=== PATIENT | female | born 1945 | race Two or more races ===

== ENCOUNTER 2018-02-24 21:22 | Inpatient (IN) | payer MEDICARE, OTHER ==
[~2018-02-24] VITALS: Ht 152.4 cm; Wt 50.8 kg
--- NOTE | 2018-02-24 21:55 | NUR ---
PT BIB [facility]. PT IS ON 5150 HOLD DANGER TO SELF/GD. PER REPORT, [place] [employer] FOUND PT WANDERING AND PT WAS CONFUSED, DIDN'T KNOW WHERE SHE WAS. PT IS CALM + COOPERATIVE AT THIS TIME.
--- NOTE | 2018-02-24 21:59 | NUR ---
PATIENT UNABLE TO RECALL HOME MEDICATION AT THIS TIME
[2018-02-24 22:29] LABS: BASOPHILS # (AUTO) 0.1 K/uL (0.0-8.0); EOSINOPHILS # (AUTO) 0.1 K/uL (0.0-0.7); EOSINOPHILS % (AUTO) 2.1 % (0.0-7.0); HEMATOCRIT 36.5 % (31.2-41.9); HEMOGLOBIN 12.6 g/dL (10.9-14.3); LYMPHOCYTES # (AUTO) 1.5 K/uL (20.0-40.0); LYMPHOCYTES % (AUTO) 25.6 % (20.5-51.5); MEAN CORPUSCULAR HEMOGLOBIN 32.5 uug (24.7-32.8); MEAN CORPUSCULAR HGB CONC 35 g/dL (32.3-35.6); MEAN CORPUSCULAR VOLUME 94.4 fL (75.5-95.3); MONOCYTES # (AUTO) 0.5 K/uL (2.0-10.0); MONOCYTES % (AUTO) 8.8 % (0.0-11.0); NEUTROPHILS # (AUTO) 3.6 K/uL (1.8-8.9); NEUTROPHILS % (AUTO) 62.5 % (38.5-71.5); PLATELET COUNT (AUTO) 226 K/uL (179-408); RED BLOOD CELL COUNT(AUTO) 3.87 MIL/uL (3.63-4.92); WHITE BLOOD COUNT (AUTO) 5.8 K/uL (3.8-11.8)
[2018-02-24 22:30] LABS: *BILIRUBIN,URIN NEGATIVE (NEGATIVE); *BLOOD, URINE Trace-intact (NEGATIVE); *COLOR,URINE YELLOW (YELLOW); *KETONES,URINE NEGATIVE (NEGATIVE); *PROTEIN,URINE NEGATIVE (NEGATIVE); *UROBILINOGEN,URINE 0.2 E.U./dl (NORMAL); LEUKOCYTE ESTERASE ,URINE 2+ (NEGATIVE); NITRITE, URINE NEGATIVE (NEGATIVE); UGLUCOSE NEGATIVE (NEGATIVE)
[2018-02-24 22:42] LABS: *CLARITY,URINE SLIGHTLY CLOUDY (CLEAR)
[2018-02-24 22:45] LABS: CARBON DIOXIDE 29 mmol/L (21-32); CHLORIDE 105 mmol/L (98-107); CREATININE 0.8 mg/dL (0.6-1.3); GLUCOSE 122 mg/dL (74-106); POTASSIUM 3.5 mmol/L (3.5-5.1); UREA NITROGEN, BLOOD 18 mg/dL (7-18)
[2018-02-24 22:47] LABS: *AMPHETAMINE, URINE NEGATIVE (NEGATIVE); *BARBITURATE, URINE NEGATIVE (NEGATIVE); *CANNABINOID, URINE NEGATIVE (NEGATIVE); *COCCAINE, URINE NEGATIVE (NEGATIVE); *OPIATE, URINE NEGATIVE (NEGATIVE); *PHENCYCLIDINE SCREEN,URINE NEGATIVE (NEGATIVE)
[2018-02-24 22:47] LABS: ETHANOL < 3 MG/DL (0-0)
[2018-02-24 22:51] LABS: ALANINE AMINOTRANSFERASE 31 U/L (14-59); ALKALINE PHOSPHATASE 80 U/L (50-136); ASPARTATE AMINOTRANSFERASE 25 U/L (15-37); BILIRUBIN,DIRECT 0.1 mg/dL (0.0-0.2); BILIRUBIN,TOTAL 0.5 mg/dL (0.2-1.0); CREATINE KINASE, TOTAL 177 U/L (26-192); TOTAL PROTEIN, SERUM 6.4 g/dL (6.4-8.2)
[2018-02-24 22:59] LABS: THYROID STIMULATING HORMONE 1.355 mIU/mL (0.358-3.740)
[2018-02-24 23:10] LABS: ACETAMINOPHEN < 2.0 ug/mL (10-30)
[2018-02-24 23:14] LABS: BACTERIA,URINE FEW /HPF (NONE SEEN); SQUAMOUS EPITHELIAL CELL,UR MANY /HPF (NONE SEEN); WBC,URINE 20-50 /HPF (0-3)
[2018-02-25] MEDS ORDERED: CEPHALEXIN MONOHYDRATE 500 MG CAPSULE PO ONE
[2018-02-25] MEDS ORDERED: CEPHALEXIN MONOHYDRATE 500 MG CAPSULE ONE (00:07)
--- NOTE | 2018-02-25 00:10 | NUR ---
PAGED [email or web address] FOR PANEL CALL. AWAITING CALL BACK FROM LAMINE ALEXANDRE NP
[2018-02-25] MEDS ORDERED: HYDROCODONE/APAP 5-325MG TABLET PO PRN (00:30)
[2018-02-25] MEDS ORDERED: Z GUARD REMEDY PASTE 57 GM TUBE TOP PRN (00:30)
[2018-02-25] MEDS ORDERED: MAGNESIUM HYDROXIDE 30 ML LIQUID UDC PO PRN (00:30)
[2018-02-25] MEDS ORDERED: ONDANSETRON 4 MG/2 ML VIAL IV PRN (00:30)
[2018-02-25] MEDS ORDERED: ACETAMINOPHEN 325 MG TABLET PO PRN (00:30)
--- NOTE | 2018-02-25 00:50 | NUR ---
Pt. admitted to [facility] , under care of Dr. Narayan/Erin MATHEW. Diagnosis: Psychosis/UTI Belongs List completed. MRSA swab done. Report given to Zechariah JULIEN.
--- NOTE | 2018-02-25 01:45 | NUR ---
RECEIVED REPORT FROM ANAYA SANTANA, IN ER. PT ARRIVED ON TELE FLOOR AT 0130 VIA W/C. PT IS ON 5150 FOR DTS/GD. 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 PT DENIES ANY PAIN, C/P, SOB, N/V AT THIS TIME. PT PLACED ON TELE MONITORING - NSR. SITTER AT BEDSIDE. PSYCH DR. NICE AND HOSPITALIST DR. ALEXANDRE. WILL CONTINUE TO MONITOR.
--- NOTE | 2018-02-25 02:16 | NUR ---
PER ER STAFF ANAYA SANTANA, PT'S COUSINS WERE CONTACTED, BUT FAMILY REFUSED TO BE INVOLVED AND DID NOT WANT TO RECEIVE CALLS FROM THE HOSPITAL RE PT. PT'S LIVING CONDITION IS UNKNOWN AND PT IS UNABLE TO PROVIDE INFORMATION. PT STATES SHE TAKES MEDICATION AT HOME OR HTN, BUT UNABLE TO RECALL THE NAME OF MEDS.
[2018-02-25 02:19] VITALS: BP 155/64
[2018-02-25 04:26] VITALS: BP 145/68
[2018-02-25 06:10] LABS: BASOPHILS % (AUTO) 0.7 % (0.0-2.0); EOSINOPHILS # (AUTO) 0.2 K/uL (0.0-0.7); EOSINOPHILS % (AUTO) 2.8 % (0.0-7.0); HEMOGLOBIN 12.4 g/dL (10.9-14.3); LYMPHOCYTES # (AUTO) 1.6 K/uL (20.0-40.0); LYMPHOCYTES % (AUTO) 30.1 % (20.5-51.5); MEAN CORPUSCULAR HEMOGLOBIN 32.8 uug (24.7-32.8); MEAN CORPUSCULAR HGB CONC 34 g/dL (32.3-35.6); MEAN CORPUSCULAR VOLUME 95.8 fL (75.5-95.3); MONOCYTES # (AUTO) 0.5 K/uL (2.0-10.0); NEUTROPHILS # (AUTO) 3.1 K/uL (1.8-8.9); NEUTROPHILS % (AUTO) 57.4 % (38.5-71.5); PLATELET COUNT (AUTO) 227 K/uL (179-408); RED BLOOD CELL COUNT(AUTO) 3.76 MIL/uL (3.63-4.92); WHITE BLOOD COUNT (AUTO) 5.4 K/uL (3.8-11.8)
[2018-02-25 06:32] LABS: CARBON DIOXIDE 30 mmol/L (21-32); CHLORIDE 105 mmol/L (98-107); CHOLESTEROL 143 mg/dL (<200); CREATININE 0.8 mg/dL (0.6-1.3); GLUCOSE 91 mg/dL (74-106); HDL CHOLESTEROL 55 mg/dL (40-60); MAGNESIUM 2.1 mg/dL (1.8-2.4); PHOSPHOROUS 3.7 mg/dL (2.5-4.9); POTASSIUM 3.9 mmol/L (3.5-5.1); TRIGLYCERIDES 81 MG/DL (30-150); UREA NITROGEN, BLOOD 15 mg/dL (7-18)
[2018-02-25 06:40] LABS: THYROID STIMULATING HORMONE 1.274 mIU/mL (0.358-3.740)
--- NOTE | 2018-02-25 07:00 | NUR ---
Received pt sleeping, 1:1 sitter for safety. No immediate s/s of SOB, pain, distress or discomfort. RA. Bed at lowest position for safety
[2018-02-25] MEDS: CEPHALEXIN MONOHYDRATE 500 MG CAPSULE PO SCH ×2 (08:53→16:26)
--- NOTE | 2018-02-25 09:00 | NUR ---
Informed by INSTRUMENT REPAIR TECHNICIAN that the pt states she is hearing voices. That the voices are telling her not to eat
[2018-02-25 10:53] VITALS: BP 168/76
--- NOTE | 2018-02-25 15:03 | NUR ---
Informed by MAXWELL that pt tried to walk out of the hospital while I was on my break, stated that the pt was laying down, got up and started to walk out the door. Went to assess the pt, pt is laying in bed mumbling to herself. I asked the pt is she was okay and if she needed to talk to me, pt just mumbled.
--- NOTE | 2018-02-25 15:30 | NUR ---
Informed FINANCIAL CONSULTANT Pradeep in regards to the pt BP medications. orders were placed for Clonidine and Norvasc. Called Dr. Del Castillo for consult and informed her about the pt.'s hallucinations.
[2018-02-25] MEDS: CLONIDINE HCL 0.1 MG TABLET PO PRN ×2 (16:03→23:43)
--- NOTE | 2018-02-25 16:14 | NUR ---
Extensively explained the BP and ATB scheduled medications, pt was very adamant in not taking her medications stating that staff was planning on to kill her with pills. Pt states she herd staff member planning her . It took 15 minutes before pt took her BP medication
[2018-02-25 16:22] VITALS: BP 181/71
--- NOTE | 2018-02-25 16:37 | NUR ---
Pt agreed to take her Keflex after re-explaining the risk and benefits with Dr. Del Castillo. Pt is still under the impression staff is out to do her harm
[2018-02-25] MEDS ORDERED: risperiDONE-M 0.5 MG TAB.RAPDIS PO PRN (17:30)
--- NOTE | 2018-02-25 19:07 | NUR ---
Pt is sleeping at this time. Sitter 1:1 for safety. No immediate s/s of distress, discomfort or pain. Bed at lowest position.
--- NOTE | 2018-02-25 19:30 | NUR ---
Received patient awake verbally responsive, no sob no chest pain noted, cont on 1;1 sitter for safety, patient has episodes of wanting to elope, complain of slight headaches, refused to take pain meds, at this time, bp stable at this time, cont to monitor.
[2018-02-25 19:52] VITALS: BP 152/64
[2018-02-26 00:07] VITALS: BP 188/68
[2018-02-26 02:06] VITALS: BP 145/62
[2018-02-26 04:29] VITALS: BP 135/67
--- NOTE | 2018-02-26 05:51 | NUR ---
PATIENT SLEPT FOR ONE HOUR, CONT 1;1 SITTER FOR SAFETY, WITH ATTEMPTS TO ELOPE, CONTINENT OF BOWEL AND BLADDER, RYTHM SINUS RYTHM AT THIS TIME. CONT TO MONITOR.
[2018-02-26] MEDS: BENZTROPINE MESYLATE 0.5 MG TABLET PO SCH ×2 (08:43→16:25)
[2018-02-26] MEDS: AMLODIPINE 5 MG TABLET PO SCH (08:44)
[2018-02-26] MEDS: CEPHALEXIN MONOHYDRATE 500 MG CAPSULE PO SCH ×2 (08:44→16:25)
--- NOTE | 2018-02-26 09:15 | NUR ---
Pt stated that "they" are telling her not to eat breakfast. It took about 10 minutes to talk to the pt and convince her that it was very important for her to eat breakfast and that she needs nutrition in order to get better. Pt was compliant with morning medications after also extensively explaining them to her.
--- NOTE | 2018-02-26 16:33 | NUR ---
DC tele Pt compliant with afternoon medications. Pt is resting in bed
[2018-02-26] MEDS ORDERED: risperiDONE-M 0.5 MG TAB.RAPDIS PO SCH (17:00)
--- NOTE | 2018-02-26 17:17 | NUR ---
Pt seen and evaluated by Dr. Del Castillo
--- NOTE | 2018-02-26 18:46 | NUR ---
Pt has been compliant with medications, noted to still have hallucinations, Dr Del Castillo aware. Pt is alert and oriented times 4 with confusion, able to ambulate, able to verbally communicate needs.
--- NOTE | 2018-02-26 19:30 | NUR ---
RECEIVED PATIENT AWAKE BUT STILL WITH CONFUSION, REFUSED GROOMING, PREFER TO WEAR STREET CLOTHES. PATIENT NOTED TALKING TO SELF CONT TO REORIENT, CONT 1;1 SITTER FOR RISK FOR ELOPEMENT, ENCOURAGE TO DRINK AND ATE MEALS.
[2018-02-26 19:37] VITALS: BP 125/57
[2018-02-26] MEDS: risperiDONE-M 0.5 MG TAB.RAPDIS PO SCH (20:41)
[2018-02-27 05:25] VITALS: BP 155/71
--- NOTE | 2018-02-27 05:28 | NUR ---
PATIENT SLEPT FOR 7 HRS AT THIS TIME, ASSISTED WITH TOILETING, REFUSED HOSPITAL G[facility], PREFER STREET CLOTHES, CONT ON 1;1 SITTER FOR SAFETY, RISK FOR ELOPEMENT, CONT TO MONITOR.
--- NOTE | 2018-02-27 07:18 | NUR ---
Received pt awake sitting up in her bed. Pt states that she knows she is here because of her mental state.
[2018-02-27 08:00] VITALS: BP 152/56
[2018-02-27] MEDS: AMLODIPINE 5 MG TABLET PO SCH (08:00)
[2018-02-27] MEDS: BENZTROPINE MESYLATE 0.5 MG TABLET PO SCH ×2 (08:00→16:29)
[2018-02-27] MEDS: CEPHALEXIN MONOHYDRATE 500 MG CAPSULE PO SCH ×2 (08:00→16:29)
--- NOTE | 2018-02-27 08:18 | NUR ---
Pt is refusing breakfast because "they" are telling her not to eat. Had to explain AM medications 15minutes before she decided to take them because "they " keep telling her not to take medication because they are too strong.
[2018-02-27 12:00] VITALS: BP 168/70
[2018-02-27] MEDS: CLONIDINE HCL 0.1 MG TABLET PO PRN (12:57)
[2018-02-27] MEDS: SERTRALINE HCL 50 MG TABLET PO SCH (12:58)
[2018-02-27] MEDS: risperiDONE-M 0.5 MG TAB.RAPDIS PO SCH ×2 (12:58→20:46)
--- NOTE | 2018-02-27 13:03 | NUR ---
Pt compliant with noon medications, noted that pt has not touched her food. Pt was encourage to eat but she still states she is not allowed to eat, that "they" tell her not to eat. When asked who are "they", pt says she doesn't know. Convinced pt. to at least try the crackers
[2018-02-27 14:30] LABS: BASOPHILS % (AUTO) 0.7 % (0.0-2.0); EOSINOPHILS # (AUTO) 0.1 K/uL (0.0-0.7); EOSINOPHILS % (AUTO) 1.7 % (0.0-7.0); HEMATOCRIT 38.7 % (31.2-41.9); HEMOGLOBIN 13.5 g/dL (10.9-14.3); LYMPHOCYTES # (AUTO) 0.9 K/uL (20.0-40.0); LYMPHOCYTES % (AUTO) 19.8 % (20.5-51.5); MEAN CORPUSCULAR HGB CONC 35 g/dL (32.3-35.6); MEAN CORPUSCULAR VOLUME 94.8 fL (75.5-95.3); MONOCYTES # (AUTO) 0.3 K/uL (2.0-10.0); MONOCYTES % (AUTO) 7.3 % (0.0-11.0); NEUTROPHILS # (AUTO) 3.3 K/uL (1.8-8.9); NEUTROPHILS % (AUTO) 70.5 % (38.5-71.5); PLATELET COUNT (AUTO) 255 K/uL (179-408); RED BLOOD CELL COUNT(AUTO) 4.08 MIL/uL (3.63-4.92); WHITE BLOOD COUNT (AUTO) 4.7 K/uL (3.8-11.8)
[2018-02-27 14:48] LABS: ALANINE AMINOTRANSFERASE 27 U/L (14-59); ALKALINE PHOSPHATASE 88 U/L (50-136); ASPARTATE AMINOTRANSFERASE 19 U/L (15-37); BILIRUBIN,TOTAL 0.5 mg/dL (0.2-1.0); CARBON DIOXIDE 28 mmol/L (21-32); CHLORIDE 105 mmol/L (98-107); CREATININE 0.9 mg/dL (0.6-1.3); GLUCOSE 115 mg/dL (74-106); MAGNESIUM 2.4 mg/dL (1.8-2.4); POTASSIUM 4.2 mmol/L (3.5-5.1); TOTAL PROTEIN, SERUM 7.2 g/dL (6.4-8.2); UREA NITROGEN, BLOOD 12 mg/dL (7-18)
[2018-02-27 16:19] VITALS: BP 126/55
--- NOTE | 2018-02-27 16:35 | NUR ---
Pt is noted talking to herself. Pt compliant with afternoon meds. Pt asked to have a jeana george ordered. Dietary aware
--- NOTE | 2018-02-27 18:02 | NUR ---
Pt refused to eat dinner, jeana george noted on her plate. Pt states she has a bad taste in her mouth. Educated the pt on the importance of eating a health and proper diet as well as to increase her hydration.
--- NOTE | 2018-02-27 19:30 | NUR ---
RECEIVED PATIENT IN BED, ALERT ORIENTED NO SOB NO CHEST PAIN, NO COMPLAIN OF PAIN NO FURTHER, EPISODES OF VOMITING, NO BLEEDING NOTED ON PERMA CATH ON R CHEST CONT TO PAMELA Addendum: 02/28/18 at 0232 by AUGUSTUS WEBB RN RECEIVED PATIENT IN BED ALERT, ORIENTED NO SOB NO CHEST PAIN NO COMPLAIN OF PAIN NO FURTHER EPISODES OF VOMITING NO BLEEDING NOTED ON PERMA CATH ON R CHEST CONT TO MONITOR, CHARTING IN ERROR.
--- NOTE | 2018-02-27 19:45 | NUR ---
PATIENT AWAKE VERBALLY RESPONSIVE, SPEAK SINGAPOREAN, NO COMPLAIN OF PAIN, PATIENT STILL CONFUSED, STILL HAS HALLUCINATIONS NOTED, CONT 1;1 FOR SAFETY. KEPT COMFORTABLE.
[2018-02-27 19:49] VITALS: BP 116/47
--- NOTE | 2018-02-28 05:17 | NUR ---
PATIENT SLEPT FOR 6 HOURS, NO COMPLAIN OF PAIN, NO SOB, ASSISTED WITH TOILETING, CONT 1;1 SITTER FOR SAFETY, PATIENT STILL HAS EPISODES OF HALLUCINATIONS, TALKS TO SELF, CONT TO MONITOR.
[2018-02-28 05:18] VITALS: BP 152/54
[2018-02-28 06:33] LABS: BASOPHILS % (AUTO) 0.7 % (0.0-2.0); EOSINOPHILS # (AUTO) 0.1 K/uL (0.0-0.7); EOSINOPHILS % (AUTO) 2.3 % (0.0-7.0); HEMOGLOBIN 12.7 g/dL (10.9-14.3); LYMPHOCYTES # (AUTO) 1.3 K/uL (20.0-40.0); LYMPHOCYTES % (AUTO) 24.2 % (20.5-51.5); MEAN CORPUSCULAR HEMOGLOBIN 32.9 uug (24.7-32.8); MEAN CORPUSCULAR HGB CONC 34 g/dL (32.3-35.6); MEAN CORPUSCULAR VOLUME 95.5 fL (75.5-95.3); MONOCYTES # (AUTO) 0.5 K/uL (2.0-10.0); MONOCYTES % (AUTO) 10.2 % (0.0-11.0); NEUTROPHILS # (AUTO) 3.3 K/uL (1.8-8.9); NEUTROPHILS % (AUTO) 62.6 % (38.5-71.5); PLATELET COUNT (AUTO) 245 K/uL (179-408); RED BLOOD CELL COUNT(AUTO) 3.87 MIL/uL (3.63-4.92); WHITE BLOOD COUNT (AUTO) 5.2 K/uL (3.8-11.8)
[2018-02-28 06:34] LABS: CARBON DIOXIDE 28 mmol/L (21-32); CHLORIDE 106 mmol/L (98-107); GLUCOSE 95 mg/dL (74-106); POTASSIUM 4.3 mmol/L (3.5-5.1); UREA NITROGEN, BLOOD 17 mg/dL (7-18)
[2018-02-28 07:35] VITALS: BP 160/58
[2018-02-28] MEDS: risperiDONE-M 0.5 MG TAB.RAPDIS PO SCH ×3 (08:20→20:19)
[2018-02-28] MEDS: BENZTROPINE MESYLATE 0.5 MG TABLET PO SCH ×2 (08:21→17:10)
[2018-02-28] MEDS: CEPHALEXIN MONOHYDRATE 500 MG CAPSULE PO SCH ×2 (08:21→17:10)
[2018-02-28] MEDS: AMLODIPINE 5 MG TABLET PO SCH (08:21)
[2018-02-28 12:00] VITALS: BP 105/50
[2018-02-28] MEDS: SERTRALINE HCL 50 MG TABLET PO SCH (13:56)
[2018-02-28 15:44] VITALS: BP 119/56
[2018-02-28 19:30] VITALS: BP 126/62
--- NOTE | 2018-02-28 19:30 | NUR ---
Patient stable at start of shift with no acute distress. Estonian speaking. Patient is alert, awake, sitting by the bedside. 1:1 sitter at the bedside for safety. On a 14 day hold till 03/13/18. Vital signs within range at start of shift. Room checked for safety. Patient is comfortably sitting down with no apparent delusions noted at the moment. Will continue to monitor patient through shift.
--- NOTE | 2018-03-01 06:20 | NUR ---
Patient slept well through shift. Slept about 8 hours total. No acute distress noted. Vital signs remained within range. No signs of SI noted. Sitter at the bedside for safety. No hallucinations noted. All needs attended to. Medications administered as per MD order. Safety measures maintained. Will endorse to day shift nurse.
[2018-03-01 07:51] VITALS: BP 89/44
[2018-03-01] MEDS: risperiDONE-M 0.5 MG TAB.RAPDIS PO SCH ×2 (08:07→13:00)
[2018-03-01] MEDS: BENZTROPINE MESYLATE 0.5 MG TABLET PO SCH (08:07)
[2018-03-01] MEDS: CEPHALEXIN MONOHYDRATE 500 MG CAPSULE PO SCH (08:07)
[2018-03-01] MEDS: AMLODIPINE 5 MG TABLET PO SCH (08:26)
--- NOTE | 2018-03-01 08:28 | NUR ---
BP MED HELD---. PT. ALERT, VERY CONFUSED, STILL HAVING VISUAL AND AUDITORY HALLUCINATIONS. PACING IN ROOM, STEADY ON HER FEET. SITTER AT BEDSIDE FOR SAFETY.
--- NOTE | 2018-03-01 08:31 | NUR ---
YANELI CENTRAL OFFICE EQUIPMENT INSTALLER NOTIFIED OF DECREASED BP.
[2018-03-01 12:00] VITALS: BP 98/43
[2018-03-01] MEDS: SERTRALINE HCL 50 MG TABLET PO SCH (13:00)
--- NOTE | 2018-03-01 15:56 | NUR ---
pt. discharged to [facility]
[2018-03-01] MEDS ORDERED: AMLO5TAB4 PO (16:54)
[2018-03-01] MEDS ORDERED: BENZ0.5T43 PO (16:55)
[2018-03-01] MEDS ORDERED: CEPH500T PO (16:56)
[2018-03-01] MEDS ORDERED: CLON0.1T PO (16:58)
[2018-03-01] MEDS ORDERED: SERT50TA PO (17:00)
[2018-03-01] MEDS ORDERED: [UNRECOGNIZED DRUG - CODE] PO (17:03)
[2018-03-01] MEDS ORDERED: RISP0.5T74 PO (17:04)
== END 2018-03-01 15:38 | DRG 689 ==
LOC: ER 21:24 → TELE 02-25 00:46 → MED 02-26 16:35
PROVIDERS: ADMIT Psychiatry & Neurology Psychiatry; ATTEND Nurse Practitioner Acute Care
DX: N39.0 Urinary tract infection, site not specified (principal); I62.03 Nontraumatic chronic subdural hemorrhage; E44.1 Mild protein-calorie malnutrition; F32.3 Major depressive disorder, single episode, severe with psychotic features; F29 Unspecified psychosis not due to a substance or known physiological condition; E78.5 Hyperlipidemia, unspecified; Z59.0 Homelessness; Z73.6 Limitation of activities due to disability; E88.09 Other disorders of plasma-protein metabolism, not elsewhere classified; Z68.21 Body mass index [BMI] 21.0-21.9, adult; B96.89 Other specified bacterial agents as the cause of diseases classified elsewhere; D18.1 Lymphangioma, any site; I10 Essential (primary) hypertension
CPT/HCPCS: 36415; 70450; 71045; 72125; 80307; 83735; 84100; 84443; 85025; 85730; 87086; 93005; A4663; G0480; G0480-TC

== ENCOUNTER 2018-03-01 15:59 | Inpatient (IN) | payer MEDICARE, OTHER ==
[~2018-03-01] VITALS: Ht 152.4 cm; Wt 53.5 kg
[2018-03-01] MEDS ORDERED: ACETAMINOPHEN 325 MG TABLET PO PRN ×2 (16:15→16:45)
[2018-03-01] MEDS ORDERED: MAG HYDROX/AL HYDROX/SIMETH 30 ML LIQUID UDC PO PRN (16:15)
[2018-03-01 16:30] VITALS: BP 124/53
[2018-03-01] MEDS ORDERED: risperiDONE-M 0.5 MG TAB.RAPDIS PO PRN (16:30)
[2018-03-01] MEDS ORDERED: MAGNESIUM HYDROXIDE 30 ML LIQUID UDC PO PRN (16:45)
[2018-03-01] MEDS ORDERED: Z GUARD REMEDY PASTE 57 GM TUBE TOP PRN (16:45)
[2018-03-01] MEDS ORDERED: ONDANSETRON 4 MG/2 ML VIAL IV PRN (16:45)
[2018-03-01] MEDS ORDERED: HYDROCODONE/APAP 5-325MG TABLET PO PRN (16:45)
[2018-03-01] MEDS ORDERED: AMLO5TAB4 PO (16:54)
[2018-03-01] MEDS ORDERED: BENZ0.5T43 PO (16:55)
[2018-03-01] MEDS ORDERED: CEPH500T PO (16:56)
[2018-03-01] MEDS ORDERED: CLON0.1T PO (16:58)
[2018-03-01] MEDS ORDERED: SERT50TA PO (17:00)
--- NOTE | 2018-03-01 17:00 | NUR ---
ADMITTED TO [facility]HU UNIT. SITTER AT BEDSIDE. V/S STABLE. COOPERATIVE AT THIS TIME.
[2018-03-01] MEDS ORDERED: [UNRECOGNIZED DRUG - CODE] PO (17:03)
[2018-03-01] MEDS ORDERED: RISP0.5T74 PO (17:04)
[2018-03-01 20:00] VITALS: BP 100/72
[2018-03-01] MEDS: risperiDONE-M 0.5 MG TAB.RAPDIS PO SCH (20:40)
--- NOTE | 2018-03-01 21:00 | NUR ---
Nursing Note: Patient awake alert confused and hyperverbal. Pt noted to be having auditory and visual hallucinations. Reporting that "When are the children coming back"(in Serbian). Pt redirected as needed. Respirations even and unlabored. No acute physiological distress at this time. Noted with 1:1 sitter justified by diagnosis of psychosis and possible subdural hematoma. No complaints of pain at this time. Pt ambulatory with a steady gait. No episodes of acute psychosis at this time. Call light in reach at all times. Frequent visual checks. Will continue to monitor.
[2018-03-02] VITALS: BP 141/55
--- NOTE | 2018-03-02 01:00 | NUR ---
Nursing Note: Patient resting in bed eyes closed. Respirations even and unlabored. No acute physiological distress at this time. Noted with 1:1 sitter justified by diagnosis of psychosis and possible subdural hematoma. No complaints of pain at this time. Call light in reach at all times. Frequent visual checks. Will continue to monitor.
[2018-03-02 05:41] VITALS: BP 135/42
--- NOTE | 2018-03-02 07:10 | NUR ---
RECEIVED REPORT FROM LUMBER MARKER NURSE, PATIENT IN BED AWAKE, SITTING AT BEDSIDE. CURRENTLY IN NO DISTRESS, SITTER AT BEDSIDE.
[2018-03-02 08:00] VITALS: BP 108/78
[2018-03-02] MEDS: BENZTROPINE MESYLATE 0.5 MG TABLET PO SCH ×2 (08:19→16:47)
[2018-03-02] MEDS: risperiDONE-M 0.5 MG TAB.RAPDIS PO SCH ×3 (08:19→20:49)
[2018-03-02] MEDS: CEPHALEXIN MONOHYDRATE 500 MG CAPSULE PO SCH ×2 (09:49→16:47)
[2018-03-02] MEDS ORDERED: CLONIDINE HCL 0.1 MG TABLET PO PRN (10:00)
[2018-03-02 12:00] VITALS: BP 134/47
[2018-03-02] MEDS ORDERED: SERTRALINE HCL 50 MG TABLET PO SCH (13:00)
[2018-03-02 16:00] VITALS: BP 118/49
[2018-03-02] MEDS ORDERED: Medication Not On Formulary EA (Cephalexin Monohydrate (Cephalexin) 1 TAB) PO SCH (17:00)
--- NOTE | 2018-03-02 17:58 | NUR ---
Patient has been hearing voices and as she hears the voices she goes closer to the wall in the corner to listen closely. Currently patient is ambulating in room, no distress noted at this time, bed in low position, sitter at bedside.
[2018-03-02 19:46] VITALS: BP 126/59
[2018-03-02] MEDS: TEMAZEPAM 7.5 MG CAPSULE PO PRN (22:18)
--- NOTE | 2018-03-03 06:58 | NUR ---
PATIENT WOKE UP AROUND 0515 AND IS WALKING AROUND IN THE ROOM. SHE IS NOT TALKING OUT LOUD, BUT IS WANDERING IN THE ROOM WITH HER ARMS UP, AND IS LOOKING AND TRYING TO GO UNDER THE BED. REFUSING TO TAKE PRN MEDICATION. SHE IS NOT BEING DISRUPTIVE TO OTHERS.
[2018-03-03 07:10] LABS: BASOPHILS % (AUTO) 0.6 % (0.0-2.0); EOSINOPHILS # (AUTO) 0.1 K/uL (0.0-0.7); EOSINOPHILS % (AUTO) 2.3 % (0.0-7.0); HEMATOCRIT 40.2 % (31.2-41.9); HEMOGLOBIN 13.8 g/dL (10.9-14.3); LYMPHOCYTES # (AUTO) 1.6 K/uL (20.0-40.0); LYMPHOCYTES % (AUTO) 31.1 % (20.5-51.5); MEAN CORPUSCULAR HEMOGLOBIN 32.8 uug (24.7-32.8); MEAN CORPUSCULAR HGB CONC 34 g/dL (32.3-35.6); MEAN CORPUSCULAR VOLUME 95.7 fL (75.5-95.3); MONOCYTES # (AUTO) 0.4 K/uL (2.0-10.0); MONOCYTES % (AUTO) 6.8 % (0.0-11.0); NEUTROPHILS # (AUTO) 3.1 K/uL (1.8-8.9); NEUTROPHILS % (AUTO) 59.2 % (38.5-71.5); PLATELET COUNT (AUTO) 251 K/uL (179-408); RED BLOOD CELL COUNT(AUTO) 4.21 MIL/uL (3.63-4.92); WHITE BLOOD COUNT (AUTO) 5.2 K/uL (3.8-11.8)
--- NOTE | 2018-03-03 07:10 | NUR ---
Received report from shift leader nurse, patient in bed awake, crying in bed. Reports that she is praying to God that she is ok. Bed in low position, side rails up x2, sitter at bedside.
[2018-03-03 07:24] LABS: CARBON DIOXIDE 25 mmol/L (21-32); CHLORIDE 104 mmol/L (98-107); CREATININE 0.9 mg/dL (0.6-1.3); GLUCOSE 106 mg/dL (74-106); POTASSIUM 3.9 mmol/L (3.5-5.1); UREA NITROGEN, BLOOD 17 mg/dL (7-18)
[2018-03-03] MEDS: risperiDONE-M 0.5 MG TAB.RAPDIS PO SCH ×3 (08:37→17:28)
[2018-03-03] MEDS: BENZTROPINE MESYLATE 0.5 MG TABLET PO SCH ×2 (08:37→17:27)
[2018-03-03] MEDS: AMLODIPINE 5 MG TABLET PO SCH (08:46)
[2018-03-03 12:00] VITALS: BP 110/47
[2018-03-03] MEDS ORDERED: SERTRALINE HCL 50 MG TABLET PO SCH (13:00)
[2018-03-03] MEDS: DIVALPROEX SPRINKLE 125 MG CAP.SPRINK PO SCH ×2 (14:11→17:27)
--- NOTE | 2018-03-03 17:56 | NUR ---
patient has been cooperative with medications but needs encouragement. Patient has been observed responding to external stimuli, pacing, exercising and skipping meals all together. Currently patient sitting at the bedside, cooperative, with sitter at bedside.
[2018-03-03 19:00] VITALS: BP 153/62
--- NOTE | 2018-03-04 05:51 | NUR ---
PT SLEPT 3.5 HOURS. PT GETTING UP AND HAVING VISUAL AND AUDITORY HALLUCINATIONS AGAIN, TALKING TO THE RAMIREZ, TRYING TO CRAWL UNDER THE BED, AND EVEN RUNNING OUT OF HER ROOM. REFUSING TO TAKE PRN MEDICATIONS. AT THIS TIME PT IS JUST PACING IN HER ROOM.
--- NOTE | 2018-03-04 07:37 | NUR ---
patient resting comfortably in bed at this time. no signs of hallucinations, no signs of delusions at this time. 1:1 sitter at bedside for safety. reorientation will be provided. safety measures implemented.
[2018-03-04] MEDS: AMLODIPINE 5 MG TABLET PO SCH (09:01)
[2018-03-04] MEDS: BENZTROPINE MESYLATE 0.5 MG TABLET PO SCH ×2 (09:01→16:45)
[2018-03-04] MEDS: risperiDONE-M 0.5 MG TAB.RAPDIS PO SCH ×3 (09:01→17:41)
[2018-03-04] MEDS: DIVALPROEX SPRINKLE 125 MG CAP.SPRINK PO SCH ×3 (09:02→16:45)
[2018-03-04 09:23] VITALS: BP 150/67
[2018-03-04 10:30] VITALS: BP 113/69
--- NOTE | 2018-03-04 14:01 | NUR ---
Firearms Report: Load Builder completed and submitted [employer] Firearms Report on 03/04/18 for 5250 grave disability certification.
[2018-03-04 15:00] VITALS: BP 110/68
[2018-03-04 20:19] VITALS: BP 118/52
[2018-03-05 07:35] VITALS: BP 117/57
[2018-03-05] MEDS: AMLODIPINE 5 MG TABLET PO SCH (08:37)
[2018-03-05] MEDS: risperiDONE-M 0.5 MG TAB.RAPDIS PO SCH ×3 (08:37→16:39)
[2018-03-05] MEDS: BENZTROPINE MESYLATE 0.5 MG TABLET PO SCH ×2 (08:37→16:39)
[2018-03-05] MEDS: DIVALPROEX SPRINKLE 125 MG CAP.SPRINK PO SCH ×3 (08:38→16:39)
[2018-03-05 15:43] VITALS: BP 111/52
--- NOTE | 2018-03-05 17:32 | NUR ---
Gps/Advance Seal Delivery System Maintainer- Isolative, compliant with her routine mediciations, needed prompting from time to time . Encouraged participation in her group therapy. No distress, denies pain, safety reviewed and emphasized.
[2018-03-05 20:13] VITALS: BP 108/51
[2018-03-05] MEDS: TEMAZEPAM 7.5 MG CAPSULE PO PRN (22:41)
[2018-03-06 07:30] VITALS: BP 131/50
[2018-03-06] MEDS: BENZTROPINE MESYLATE 0.5 MG TABLET PO SCH ×3 (08:46→20:29)
[2018-03-06] MEDS: DIVALPROEX SPRINKLE 125 MG CAP.SPRINK PO SCH ×3 (08:46→16:16)
[2018-03-06] MEDS: risperiDONE-M 0.5 MG TAB.RAPDIS PO SCH ×3 (08:46→20:27)
[2018-03-06] MEDS: AMLODIPINE 5 MG TABLET PO SCH (08:47)
[2018-03-06 17:34] VITALS: BP 124/49
[2018-03-06 21:08] VITALS: BP 134/44
[2018-03-06] MEDS: TEMAZEPAM 7.5 MG CAPSULE PO PRN (22:23)
--- NOTE | 2018-03-07 06:36 | NUR ---
Pt SLEPT WELL THROUGHOUT THE NIGHT, WOKE UP THIS MORNING WITHOUT ANY NOTED DELUSIONS OR HALLUCINATIONS. DENIES PAIN, NO DISTRESS NOTED, ABLE TO MAKE NEEDS KNOWN.
[2018-03-07 07:30] VITALS: BP 123/53
[2018-03-07] MEDS: AMLODIPINE 5 MG TABLET PO SCH (08:30)
[2018-03-07] MEDS: risperiDONE-M 0.5 MG TAB.RAPDIS PO SCH ×3 (08:30→20:41)
[2018-03-07] MEDS: BENZTROPINE MESYLATE 0.5 MG TABLET PO SCH ×3 (08:31→20:41)
[2018-03-07] MEDS: DIVALPROEX SPRINKLE 125 MG CAP.SPRINK PO SCH ×3 (08:31→16:28)
[2018-03-07 15:00] VITALS: BP 114/50
[2018-03-07 20:25] VITALS: BP 153/55
[2018-03-07] MEDS: MAGNESIUM HYDROXIDE 30 ML LIQUID UDC PO PRN (20:43)
[2018-03-08 07:30] VITALS: BP 105/50
[2018-03-08] MEDS: DIVALPROEX SPRINKLE 125 MG CAP.SPRINK PO SCH ×3 (08:14→16:42)
[2018-03-08] MEDS: AMLODIPINE 5 MG TABLET PO SCH (08:14)
[2018-03-08] MEDS: BENZTROPINE MESYLATE 0.5 MG TABLET PO SCH ×3 (08:14→20:07)
[2018-03-08] MEDS: risperiDONE-M 0.5 MG TAB.RAPDIS PO SCH ×3 (08:14→20:07)
--- NOTE | 2018-03-08 15:00 | NUR ---
Gps/Area Operations Manager- Some crying spells noted this pm, sitting at the edge of her bed, claimed she is doing ok, encouraged verbalizations of her feelings and needs.
[2018-03-08 15:59] VITALS: BP 110/62
[2018-03-08 20:17] VITALS: BP 111/60
[2018-03-09 07:30] VITALS: BP 119/55
[2018-03-09] MEDS: BENZTROPINE MESYLATE 0.5 MG TABLET PO SCH ×4 (08:16→20:14)
[2018-03-09] MEDS: risperiDONE-M 0.5 MG TAB.RAPDIS PO SCH ×4 (08:16→20:15)
[2018-03-09] MEDS: AMLODIPINE 5 MG TABLET PO SCH (08:16)
[2018-03-09] MEDS: DIVALPROEX SPRINKLE 125 MG CAP.SPRINK PO SCH ×4 (08:16→20:14)
[2018-03-09 16:01] VITALS: BP 134/66
[2018-03-09 19:30] VITALS: BP 127/45
[2018-03-09] MEDS: LIDOCAINE 5% PATCH TD PRN (20:15)
[2018-03-10 07:30] VITALS: BP 135/48
[2018-03-10] MEDS: risperiDONE-M 0.5 MG TAB.RAPDIS PO SCH ×3 (08:39→20:16)
[2018-03-10] MEDS: DIVALPROEX SPRINKLE 125 MG CAP.SPRINK PO SCH ×4 (08:39→20:16)
[2018-03-10] MEDS: BENZTROPINE MESYLATE 0.5 MG TABLET PO SCH ×4 (08:39→20:16)
[2018-03-10] MEDS: AMLODIPINE 5 MG TABLET PO SCH (08:40)
[2018-03-10] MEDS ORDERED: risperiDONE 1 MG TABLET PO ONE (12:15)
[2018-03-10 16:20] VITALS: BP 121/46
[2018-03-10 19:30] VITALS: BP_SYST 144; BP_SYST 179; BP_DIAS 40; BP_DIAS 69
[2018-03-11 07:30] VITALS: BP 162/60
[2018-03-11] MEDS: risperiDONE-M 0.5 MG TAB.RAPDIS PO SCH ×3 (08:23→20:40)
[2018-03-11] MEDS: BENZTROPINE MESYLATE 0.5 MG TABLET PO SCH ×3 (08:24→20:40)
[2018-03-11] MEDS: DIVALPROEX SPRINKLE 125 MG CAP.SPRINK PO SCH ×4 (08:28→20:39)
[2018-03-11] MEDS: AMLODIPINE 5 MG TABLET PO SCH (08:28)
[2018-03-11 08:30] VITALS: BP 162/60
[2018-03-11] MEDS ORDERED: CLONIDINE HCL 0.1 MG TABLET PO PRN (10:00)
[2018-03-11 17:04] VITALS: BP 91/52
[2018-03-11 20:16] VITALS: BP 153/64
[2018-03-11] MEDS: LIDOCAINE 5% PATCH TD PRN (20:40)
--- NOTE | 2018-03-12 06:34 | NUR ---
Pt slept comfortably at night, total of 5.30 hours. Cooperative with care. Meds given as ordered. Pt had shower this morning and appears to be happy ambulating in the hallway. Safety measures maintained. Continue to monitor. Will endorse to day shift RN.
[2018-03-12 07:30] VITALS: BP 116/53
[2018-03-12] MEDS: AMLODIPINE 5 MG TABLET PO SCH (08:07)
[2018-03-12] MEDS: DIVALPROEX SPRINKLE 125 MG CAP.SPRINK PO SCH ×4 (08:07→20:12)
[2018-03-12] MEDS: BENZTROPINE MESYLATE 0.5 MG TABLET PO SCH ×3 (08:07→20:12)
[2018-03-12] MEDS: risperiDONE-M 0.5 MG TAB.RAPDIS PO SCH ×3 (08:07→20:12)
[2018-03-12] MEDS: MAGNESIUM HYDROXIDE 30 ML LIQUID UDC PO PRN (11:41)
[2018-03-12 15:00] VITALS: BP 137/59
[2018-03-12 20:00] VITALS: BP 131/48
--- NOTE | 2018-03-12 20:30 | NUR ---
PT'S A/A/O X2-3,ON BED REST COMFORTABLY,DENIED OF PAIN OR ANY DISCOMFORT.PT COMPLIANT WITH MEDICATION AND CARE.NO AGITATION'S SEEN NOTED.CONTINUED MONITORING TO PT.
--- NOTE | 2018-03-13 06:00 | NUR ---
Pt slept for 7.3 hours in the shift.no distress noted.pt compliant with care and medications.no hallucination's seen.
[2018-03-13 07:30] VITALS: BP 118/55
[2018-03-13] MEDS: DIVALPROEX SPRINKLE 125 MG CAP.SPRINK PO SCH ×2 (08:02→12:18)
[2018-03-13] MEDS: risperiDONE-M 0.5 MG TAB.RAPDIS PO SCH (08:02)
[2018-03-13] MEDS: BENZTROPINE MESYLATE 0.5 MG TABLET PO SCH (08:02)
--- NOTE | 2018-03-13 08:09 | NUR ---
Discharge Note: Patient will be discharged to [facility] [[address] [place] [address]; [phone]] via ambulance. Please arrange an ambulance for this patient. Spoke with Flo at the facility who states they are ready to accept the patient today. Patient does not have any family members to contact at this time. Patient is alert and oriented x2 and is cooperative. Patient will follow-up at the facility with Dr. Elizabeth (Water Pipe Installer) and Dr. Del Castillo (Psychiatrist)
[2018-03-13] MEDS: AMLODIPINE 5 MG TABLET PO SCH (09:00)
[2018-03-13 10:02] VITALS: BP 129/56
[2018-03-13 11:38] VITALS: BP 122/52
--- NOTE | 2018-03-13 13:00 | NUR ---
GPS/RN- DISCHARGE NOTE patient is pleasant and compliant with meds and care, patient denies any hallucinations, no aggressive behavior, instructed on discharge verbalized understanding, No SI/HI, questions and concerns addressed. Patient discharged to [facility] [[address] [place] [address]; [phone]] via ambulance. Patient will follow-up at the facility with Dr. Elizabeth (Residential Direct Support Professional) and Dr. Del Castillo (Psychiatrist) Report provided to ANAYA Perez.
== END 2018-03-13 13:00 | DRG 885 ==
LOC: GPSOV 15:59 → GPS 03-04 11:04
PROVIDERS: ADMIT Psychiatry & Neurology Psychosomatic Medicine; ATTEND Nurse Practitioner Acute Care
DX: F31.5 Bipolar disorder, current episode depressed, severe, with psychotic features (principal); F01.50 Vascular dementia, unspecified severity, without behavioral disturbance, psychotic disturbance, mood disturbance, and anxiety; N39.0 Urinary tract infection, site not specified; E44.1 Mild protein-calorie malnutrition; Z79.899 Other long term (current) drug therapy; S06.5X9D Traumatic subdural hemorrhage with loss of consciousness of unspecified duration, subsequent encounter; X58.XXXD Exposure to other specified factors, subsequent encounter; M54.5 Low back pain; T14.90XS Injury, unspecified, sequela; V49.9XXS Car occupant (driver) (passenger) injured in unspecified traffic accident, sequela; G89.21 Chronic pain due to trauma; I10 Essential (primary) hypertension; Z59.0 Homelessness; Z68.23 Body mass index [BMI] 23.0-23.9, adult
CPT/HCPCS: 36415; 80164; 85025; 97165